=== PATIENT | male | born 1980 | race Caucasian/White ===

== ENCOUNTER → 2024-11-01 09:47 | Outpatient (CLI) | payer OTHER, SELFPAY ==
--- NOTE | 2024-11-01 09:54 | DI.RAD.S_ITS ---
PROCEDURE: XR LUMBAR SPINE 2-3V INDICATIONS: LOWER BACK PAIN TECHNIQUE: 3 views of the lumbar spine were acquired. COMPARISON: None. FINDINGS: Lumbar spine curvature and alignment: Normal. Bones: There are no osseous abnormalities. Disc spaces: Normal in height without significant degeneration. Intervertebral foramen: Grossly normal in width. Soft tissues: No soft tissue swelling, calcification or mass. IMPRESSION: Normal lumbar spine Dictated by: Mina Oliva M.D. on 11/02/2024 at 11:29 Approved by: Mina Oliva M.D. on 11/02/2024 at 11:29
== END ==
PROVIDERS: Referring Provider Family Medicine; Visit Provider Family Medicine
DX: M54.9 Dorsalgia, unspecified (principal)
CPT/HCPCS: 72100